=== PATIENT | female | born 1995 | race Caucasian/White ===

== ENCOUNTER 2018-11-11 20:13 | Emergency (ER) | payer OTHER ==
[2018-11-11] MEDS: ACETAMINOPHEN 325 MG TAB PO (20:42)
[2018-11-11] MEDS: IBUPROFEN 800 MG TAB PO (20:42)
[2018-11-11] MEDS: SODIUM CHLORIDE 0.9% 1L BAG IV* (20:42)
[2018-11-11 20:44] LABS: ADD MAN DIFF? NO
[2018-11-11 20:48] LABS: WHITE BLOOD COUNT 10.3 10^3/ul (4.8-10.8)
[2018-11-11 20:48] LABS: BASOPHILS % 0.3 % (0.0-2.0); EOSINOPHILS % 0.1 % (0.0-7.0); HEMATOCRIT 39.3 % (37.0-47.0); HEMOGLOBIN 13.3 g/dl (12.0-16.0); LYMPHOCYTES # 0.7 10^3/ul (0.8-2.9); LYMPHOCYTES % 6.7 % (15.0-51.0); MEAN CORPUSCULAR HEMOGLOBIN 31.1 pg (29.0-33.0); MEAN CORPUSCULAR HGB CONC 33.8 g/dl (32.0-37.0); MEAN CORPUSCULAR VOLUME 91.8 fl (82.0-101.0); MEAN PLATELET VOLUME 12.1 fl (7.4-10.4); MONOCYTE # 1.2 10^3/ul (0.3-0.9); MONOCYTES % 11.4 % (0.0-11.0); NEUTROPHIL # 8.4 10^3/ul (1.6-7.5); NEUTROPHILS % 81.3 % (39.0-77.0); PLATELET COUNT 134 10^3/UL (140-415); RED BLOOD COUNT 4.28 10^6/ul (4.20-5.40); RED CELL DISTRIBUTION WIDTH 12.7 % (11.5-14.5)
[2018-11-11 21:05] LABS: ADD UMIC YES; UR ASCORBIC ACID NEGATIVE (NEGATIVE); UR BACTERIA FEW /HPF (NONE SEEN); UR BILIRUBIN (Dip) NEGATIVE (NEGATIVE); UR BLOOD (Dip) 3+ mg/dL (NEGATIVE); UR CLARITY CLOUDY (CLEAR); UR COLOR YELLOW (YELLOW); UR GLUCOSE (Dip) NEGATIVE (NEGATIVE); UR KETONES (Dip) NEGATIVE (NEGATIVE); UR LEUKOCYTE ESTERASE (Dip) 1+ Leu/ul (NEGATIVE); UR NITRITE (Dip) POSITIVE (NEGATIVE); UR RBC 7 /HPF (0-5); UR SPECIFIC GRAVITY (Dip) 1.012 (1.003-1.030); UR SQUAMOUS EPITHELIAL CELL FEW /HPF (FEW); UR TOTAL PROTEIN (Dip) 2+ mg/dl (NEGATIVE); UR UROBILINOGEN (Dip) NEGATIVE (NEGATIVE); UR WBC 163 /HPF (0-5)
[2018-11-11 21:07] LABS: ALANINE AMINOTRANSFERASE 21 IU/L (13-69); ALBUMIN 4.4 g/dl (3.3-4.9); ALBUMIN/GLOBULIN RATIO 1.18; ALKALINE PHOSPHATASE 59 IU/L (42-121); AMYLASE 66 U/L (11-123); ANION GAP 10 (5-13); ASPARTATE AMINO TRANSFERASE 20 IU/L (15-46); BILIRUBIN,INDIRECT 1.1 mg/dl (0-1.1); BILIRUBIN,TOTAL 1.1 mg/dl (0.2-1.3); BLOOD UREA NITROGEN 8 mg/dl (7-20); CALCIUM 8.9 mg/dl (8.4-10.2); CARBON DIOXIDE 25 mmol/L (21-31); CHLORIDE 103 mmol/L (97-110); CREATININE 0.92 mg/dl (0.44-1.00); Estimated GFR > 60 mL/min (>60); GLUCOSE 123 mg/dl (70-220); LIPASE 29 U/L (23-300); POTASSIUM 3.7 mmol/L (3.5-5.1); SODIUM 138 mmol/L (135-144); TOTAL PROTEIN 8.1 g/dl (6.1-8.1)
[2018-11-11 21:10] LABS: INR 1.21; PROTIME 15.4 Sec (11.9-14.9); PT RATIO 1.2
[2018-11-11 21:11] LABS: PARTIAL THROMBOPLASTIN TIME 31.5 Sec (23.0-35.0)
[2018-11-11 21:18] LABS: TROPONIN-I < 0.012 ng/ml (0.000-0.120)
[2018-11-11] MEDS: CEFTRIAXONE 1 GM/50 ML (PMX) 50 ML IVPB (21:34)
[2018-11-11 23:08] LABS: LACTIC ACID 0.8 mmol/L (0.5-2.0)
== END 2018-11-11 23:09 | disposition home or self-care (01) ==
LOC: E/R 20:13
DX: N12 Tubulo-interstitial nephritis, not specified as acute or chronic (principal)
CPT/HCPCS: 36415; 71045; 80053; 81001; 81025; 82150; 83605; 83690; 84484; 85025; 85610; 85730; 87040-91; 87086; 93005; 96374; 99285-25

== ENCOUNTER 2018-11-14 21:40 | Inpatient (IN) | payer OTHER ==
[2018-11-14] MEDS: ACETAMINOPHEN 325 MG TAB PO (22:40)
[2018-11-14] MEDS: SODIUM CHLORIDE 0.9% 1L BAG IV* (22:40)
[2018-11-14 23:10] LABS: HEMATOCRIT 37.1 % (37.0-47.0); HEMOGLOBIN 12.3 g/dl (12.0-16.0); MEAN CORPUSCULAR HEMOGLOBIN 30.2 pg (29.0-33.0); MEAN CORPUSCULAR HGB CONC 33.2 g/dl (32.0-37.0); MEAN CORPUSCULAR VOLUME 91.2 fl (82.0-101.0); MEAN PLATELET VOLUME 11.9 fl (7.4-10.4); PLATELET COUNT 199 10^3/UL (140-415); RED BLOOD COUNT 4.07 10^6/ul (4.20-5.40); RED CELL DISTRIBUTION WIDTH 12.8 % (11.5-14.5)
[2018-11-14 23:10] LABS: WHITE BLOOD COUNT 6.2 10^3/ul (4.8-10.8)
[2018-11-14 23:13] LABS: INR 0.98; PROTIME 13.1 Sec (11.9-14.9)
[2018-11-14 23:14] LABS: PARTIAL THROMBOPLASTIN TIME 31.2 Sec (23.0-35.0)
[2018-11-14 23:17] LABS: ALANINE AMINOTRANSFERASE 34 IU/L (13-69); ALBUMIN 3.8 g/dl (3.3-4.9); ALBUMIN/GLOBULIN RATIO 1.02; ALKALINE PHOSPHATASE 62 IU/L (42-121); ANION GAP 10 (5-13); ASPARTATE AMINO TRANSFERASE 27 IU/L (15-46); BILIRUBIN,INDIRECT 0.2 mg/dl (0-1.1); BILIRUBIN,TOTAL 0.2 mg/dl (0.2-1.3); BLOOD UREA NITROGEN 17 mg/dl (7-20); CALCIUM 9.3 mg/dl (8.4-10.2); CARBON DIOXIDE 31 mmol/L (21-31); CHLORIDE 101 mmol/L (97-110); Estimated GFR > 60 mL/min (>60); GLUCOSE 126 mg/dl (70-220); POTASSIUM 3.9 mmol/L (3.5-5.1); SODIUM 142 mmol/L (135-144); TOTAL PROTEIN 7.5 g/dl (6.1-8.1)
[2018-11-14 23:20] LABS: ADD UMIC YES; UR ASCORBIC ACID NEGATIVE (NEGATIVE); UR BILIRUBIN (Dip) NEGATIVE (NEGATIVE); UR BLOOD (Dip) 2+ mg/dL (NEGATIVE); UR CLARITY CLEAR (CLEAR); UR COLOR COLORLESS (YELLOW); UR GLUCOSE (Dip) NEGATIVE (NEGATIVE); UR KETONES (Dip) NEGATIVE (NEGATIVE); UR LEUKOCYTE ESTERASE (Dip) NEGATIVE Leu/ul (NEGATIVE); UR NITRITE (Dip) NEGATIVE (NEGATIVE); UR RBC 3 /HPF (0-5); UR SPECIFIC GRAVITY (Dip) 1.005 (1.003-1.030); UR TOTAL PROTEIN (Dip) NEGATIVE (NEGATIVE); UR UROBILINOGEN (Dip) NEGATIVE (NEGATIVE); UR WBC 1 /HPF (0-5)
[2018-11-14 23:26] LABS: ADD MAN DIFF? YES
[2018-11-14 23:28] LABS: TROPONIN-I < 0.012 ng/ml (0.000-0.120)
[2018-11-15 00:34] LABS: ANISOCYTOSIS 1+ (0-0); BAND NEUTROPHILS #M 0.4 10^3/ul (0.0-0.6); BAND NEUTROPHILS % (M) 7 % (0-4); EOSINOPHILS % (M) 1 % (0-7); GIANT THROMBO% (M) 1 % (0-0); LYMPHOCYTES #M 1.5 10^3/ul (0.8-2.9); LYMPHOCYTES % (M) 25 % (15-51); MICROCYTOSIS 1+ (0-0); MONOCYTE #M 0.6 10^3/ul (0.3-0.9); MONOCYTES % (M) 11 % (0-11); PLATELET ESTIMATE NORMAL; POLYCHROMASIA 2+ (0-0); REACTIVE LYMPHOCYTES #M 0.1 10^3/ul (0.0-0.0); REACTIVE LYMPHOCYTES% (M) 2 % (0-0); SEG NEUT #M 3.4 10^3/ul (1.6-7.5); SEGMENTED NEUTROPHILS (M) % 54 % (39-77); SMUDGE%M 1 % (0-0)
[2018-11-15 01:53] LABS: LACTIC ACID 0.8 mmol/L (0.5-2.0)
[2018-11-15] MEDS: KETOROLAC 30 MG INJ IV (02:56)
[2018-11-15 03:34] LABS: LACTIC ACID 0.8 mmol/L (0.5-2.0)
[2018-11-15] MEDS: LEVOFLOXACIN 750MG/D5W (PMX) 150 ML IVPB (04:02)
[2018-11-15] MEDS ORDERED: ACETAMINOPHEN 325 MG TAB PO (05:00)
[2018-11-15] MEDS ORDERED: ONDANSETRON 4 MG INJ IV (05:00)
[2018-11-15] MEDS: VANCOMYCIN 1 GM (PMX) 250 ML IVPB (05:30)
[2018-11-15] MEDS ORDERED: VANCOMYCIN IV PER PHARMACY XX (06:00)
[2018-11-15] MEDS ORDERED: NACL 0.9% 3 ML SYG IV (06:00)
[2018-11-15] MEDS ORDERED: ALBUTEROL/IPRATROPIUM (NEB) 3 ML AMP HHN (06:00)
[2018-11-15] MEDS: SOD CHLORIDE 0.9% 1,000 ML IV ×3 (09:35→21:15)
[2018-11-15] MEDS: CEFTRIAXONE 1 GM/50 ML (PMX) 50 ML IVPB ×2 (09:35→13:32)
[2018-11-15] MEDS: ONDANSETRON 4 MG INJ IV (10:22)
[2018-11-15] MEDS: ACETAMINOPHEN 325 MG TAB PO ×2 (10:22→22:46)
[2018-11-15] MEDS ORDERED: LIDOCAINE 1% (MPF) 5 ML VIAL (11:56)
[2018-11-15 15:54] LABS: CSF RBC 0 /uL (0-0); CSF WBC 1 /cmm (0-10)
[2018-11-15 16:04] LABS: CSF CLARITY CLEAR; CSF VOLUME 6.9 ml; CSF#TUBES REC'D 4
[2018-11-15 16:04] LABS: CSF COLOR COLORLESS
[2018-11-15 16:05] LABS: CSF#TUBE COUNT TUBE#4
[2018-11-15] MEDS: VANCOMYCIN 1 GM 250 ML IVPB (16:36)
[2018-11-15 17:46] LABS: FLUID LD 158 U/L; FLUID TYPE CSF; TOTAL PROTEIN,CSF 26 mg/dl (12-60)
[2018-11-15 17:46] LABS: GLUCOSE,CSF 56 mg/dl (50-80)
[2018-11-15] MEDS: CEFTRIAXONE 2 GM/NS 50 ML IVPB (21:08)
[2018-11-16] MEDS: SOD CHLORIDE 0.9% 1,000 ML IV ×3 (01:43→13:53)
[2018-11-16] MEDS: VANCOMYCIN 1 GM 250 ML IVPB (05:36)
[2018-11-16 05:54] LABS: WHITE BLOOD COUNT 6.4 10^3/ul (4.8-10.8)
[2018-11-16 05:54] LABS: HEMATOCRIT 37.3 % (37.0-47.0); HEMOGLOBIN 12.2 g/dl (12.0-16.0); MEAN CORPUSCULAR HEMOGLOBIN 30.4 pg (29.0-33.0); MEAN CORPUSCULAR HGB CONC 32.7 g/dl (32.0-37.0); MEAN PLATELET VOLUME 10.9 fl (7.4-10.4); PLATELET COUNT 223 10^3/UL (140-415); RED BLOOD COUNT 4.01 10^6/ul (4.20-5.40); RED CELL DISTRIBUTION WIDTH 12.7 % (11.5-14.5)
[2018-11-16 05:58] LABS: ADD MAN DIFF? YES; POSITIVE DIFF @See below
[2018-11-16 06:14] LABS: ALANINE AMINOTRANSFERASE 49 IU/L (13-69); ALBUMIN 3.5 g/dl (3.3-4.9); ALBUMIN/GLOBULIN RATIO 1.09; ALKALINE PHOSPHATASE 49 IU/L (42-121); ANION GAP 8 (5-13); ASPARTATE AMINO TRANSFERASE 33 IU/L (15-46); BILIRUBIN,INDIRECT 0.2 mg/dl (0-1.1); BILIRUBIN,TOTAL 0.2 mg/dl (0.2-1.3); BLOOD UREA NITROGEN 9 mg/dl (7-20); CARBON DIOXIDE 27 mmol/L (21-31); CHLORIDE 108 mmol/L (97-110); CREATININE 0.98 mg/dl (0.44-1.00); Estimated GFR > 60 mL/min (>60); GLUCOSE 96 mg/dl (70-220); MAGNESIUM 1.9 mg/dl (1.7-2.5); POTASSIUM 3.9 mmol/L (3.5-5.1); SODIUM 143 mmol/L (135-144); TOTAL PROTEIN 6.7 g/dl (6.1-8.1)
[2018-11-16 06:53] LABS: BAND NEUTROPHILS #M 0.3 10^3/ul (0.0-0.6); BAND NEUTROPHILS % (M) 5 % (0-4); EOSINOPHILS % (M) 5 % (0-7); LYMPHOCYTES #M 2.3 10^3/ul (0.8-2.9); LYMPHOCYTES % (M) 37 % (15-51); MONOCYTE #M 0.6 10^3/ul (0.3-0.9); MONOCYTES % (M) 10 % (0-11); OVALOCYTES 1+ (0-0); PLATELET ESTIMATE NORMAL; POIKILOCYTOSIS 2+ (0-0); REACTIVE LYMPHOCYTES #M 0.4 10^3/ul (0.0-0.0); REACTIVE LYMPHOCYTES% (M) 7 % (0-0); SEG NEUT #M 2.3 10^3/ul (1.6-7.5); SEGMENTED NEUTROPHILS (M) % 36 % (39-77); SMUDGE%M 4 % (0-0); SPHEROCYTES 1+ (0-0)
[2018-11-16] MEDS: ACETAMINOPHEN 325 MG TAB PO (08:13)
[2018-11-16] MEDS: CEFTRIAXONE 2 GM/NS 50 ML IVPB (08:13)
[2018-11-17 15:06] LABS: WEST NILE VIRUS ANTIBODY (IGG) <1.30 index; WEST NILE VIRUS ANTIBODY (IGM) <0.90 index
== END 2018-11-16 15:46 | disposition home or self-care (01) | DRG 552 ==
LOC: E/R 21:40 → PP2 11-15 04:34
PROC: 009U3ZX Drainage of Spinal Canal, Percutaneous Approach, Diagnostic (ICD-10-PCS; principal; 2018-11-15)
PROC: B01BZZZ Fluoroscopy of Spinal Cord (ICD-10-PCS; 2018-11-15)
DX: M54.2 Cervicalgia (principal); N10 Acute pyelonephritis; R51 Headache; B96.20 Unspecified Escherichia coli [E. coli] as the cause of diseases classified elsewhere; M79.10 Myalgia, unspecified site
CPT/HCPCS: 36415; 70450; 71045; 74176; 80053; 81001; 82945; 83605; 83615; 83735; 84100; 84157; 84484; 85025; 85610; 85730; 86788; 86789; 87040-91; 87070; 87086; 87400; 89051; 93005; 96374; 96375; 99285-25

== ENCOUNTER 2018-11-18 21:10 | Emergency (ER) | payer OTHER ==
[2018-11-18] MEDS: ONDANSETRON (ODT) 4 MG TAB ODT (22:22)
[2018-11-18] MEDS: KETOROLAC 30 MG INJ IM (22:29)
== END 2018-11-18 22:44 | disposition home or self-care (01) ==
LOC: FTE 21:10
DX: R51 Headache (principal); N12 Tubulo-interstitial nephritis, not specified as acute or chronic
CPT/HCPCS: 81025; 96372; 99284-25